=== PATIENT | female | born 1950 | race Caucasian/White ===

== ENCOUNTER → 2016-08-06 | Outpatient (CLI) | payer MEDICAID ==
[~2016-08-06] MED LIST: FEMARA PO; GLUCOSAMINE & C1 CA1 PO; LISINOPRIL20 MG PO; MVI; PERCOCET 325 MG1 TA2 PO; PERCOCET 5/321 UDTAB PO; PROLIA60 MG/ML SC; VITAMIN B COMPL1 T16 PO; ZESTRIL40 MG PO; ZOCOR 20MG20 MG PO; ZOCOR5 MG PO
== END ==
LOC: MC.RAD 08-02 10:00
DX: D24.2 Benign neoplasm of left breast (principal); D24.1 Benign neoplasm of right breast; Z85.3 Personal history of malignant neoplasm of breast

== ENCOUNTER 2017-03-21 07:57 | Outpatient (CLI) | payer MEDICARE, MEDICAID ==
[~2017-03-21] VITALS: Ht 172.8 cm; Wt 121.4 kg
[2017-03-21] VITALS (12 sets, daily range): BP systolic 108–134; BP diastolic 46–69; PULSE 72–83; TEMP 98.2–98.5
[2017-03-21 08:36] LABS: HEMATOCRIT 38.7 % (37.0-47.0); HEMOGLOBIN 12.8 g/dl (12.5-16.0); MEAN CELL VOLUME 88 fl (80.0-100.0); MEAN CORPUSCULAR HEMOGLOBIN 29 pg (27.0-31.0); MEAN CORPUSCULAR HGB CONC 33 g/dl (33.0-37.0); MEAN PLATELET VOLUME 10.6 fl (7.4-10.4); PLATELET COUNT 276 K/mm3 (130-400); RED BLOOD COUNT 4.41 M/mm3 (4.10-5.30); WHITE BLOOD COUNT 8.7 K/mm3 (4.8-10.8)
[2017-03-21] MEDS ORDERED: CARTIA XT180 MG PO (08:36)
[2017-03-21] MEDS ORDERED: GLUCOPHAGE500 MG/TAB PO (08:36)
[2017-03-21] MEDS ORDERED: MASON NATURAL2000 IU PO (08:39)
[2017-03-21] MEDS ORDERED: EPA FISH OIL1 SGL PO (08:39)
[2017-03-21] MEDS ORDERED: ADVIL200 MG PO (08:40)
[2017-03-21 08:51] LABS: INR 1.1 (0.8-3.0); PROTHROMBIN TIME 13.1 SECONDS (9.7-12.8)
[2017-03-21 09:05] LABS: CALCIUM 9.6 mg/dL (8.4-10.2); CREATININE, serum 0.8 mg/dL (0.52-1.25); POTASSIUM 4.5 mmol/L (3.4-5.0)
== END 2017-03-21 12:05 | disposition home or self-care (01) ==
LOC: COL.RAD 07:57
PROVIDERS: Internal Medicine Cardiovascular Disease
DX: I08.1 Rheumatic disorders of both mitral and tricuspid valves (principal); I77.810 Thoracic aortic ectasia; I10 Essential (primary) hypertension; Z85.3 Personal history of malignant neoplasm of breast; Z90.710 Acquired absence of both cervix and uterus; Z90.10 Acquired absence of unspecified breast and nipple
CPT/HCPCS: J2250; J2370; J2704; J3010; J7120

== ENCOUNTER → 2017-09-12 | Outpatient (CLI) | payer MEDICARE, MEDICAID ==
[~2017-09-12] MED LIST changes: +ADVIL200 MG PO; +CARTIA XT180 MG PO; +EPA FISH OIL1 SGL PO; +GLUCOPHAGE500 MG/TAB PO; +MASON NATURAL2000 IU PO
== END ==
LOC: MC.RAD 08-09 11:00
DX: Z12.31 Encounter for screening mammogram for malignant neoplasm of breast (principal); Z85.3 Personal history of malignant neoplasm of breast; Z92.3 Personal history of irradiation; Z90.11 Acquired absence of right breast and nipple

== ENCOUNTER → 2018-09-16 | Outpatient (CLI) | payer MEDICARE, MEDICAID | LOC: MC.RAD 13:00 | DX: Z12.31 Encounter for screening mammogram for malignant neoplasm of breast (principal); C50.411 Malignant neoplasm of upper-outer quadrant of right female breast; Z98.890 Other specified postprocedural states; Z92.3 Personal history of irradiation ==

== ENCOUNTER → 2019-10-19 | Outpatient (CLI) | payer MEDICARE | LOC: MC.RAD 14:28 | DX: Z12.31 Encounter for screening mammogram for malignant neoplasm of breast (principal); C50.411 Malignant neoplasm of upper-outer quadrant of right female breast; Z92.3 Personal history of irradiation; Z98.890 Other specified postprocedural states ==

== ENCOUNTER → 2020-10-20 | Outpatient (CLI) | payer MEDICARE, MEDICAID | LOC: MC.RAD 08:56 | DX: Z12.31 Encounter for screening mammogram for malignant neoplasm of breast (principal); Z98.890 Other specified postprocedural states; Z92.3 Personal history of irradiation; Z85.3 Personal history of malignant neoplasm of breast ==

== ENCOUNTER 2021-07-26 07:27 | Outpatient (CLI) | payer MEDICARE, MEDICAID ==
[~2021-07-26] VITALS: Ht 172.9 cm; Wt 123.3 kg
[2021-07-26 08:12] LABS: HEMOGLOBIN 11.6 g/dl (12.5-16.0); MEAN CELL VOLUME 83 fl (80.0-100.0); MEAN CORPUSCULAR HEMOGLOBIN 28 pg (27-31); MEAN CORPUSCULAR HGB CONC 33 g/dl (33.0-37.0); MEAN PLATELET VOLUME 10.2 fl (7.4-10.4); PLATELET COUNT 278 K/mm3 (130-400); RED BLOOD COUNT 4.22 M/mm3 (4.10-5.30); REDCELL DISTRIBUTION WIDTH-CV 14.6 % (11.5-14.5)
[2021-07-26 08:15] VITALS: BP 146/78; PULSE 73; TEMP 98.1
[2021-07-26 08:16] LABS: HEMATOCRIT 34.9 % (37.0-47.0)
[2021-07-26 08:22] LABS: INR 1.2 (0.8-3.0)
[2021-07-26 08:29] LABS: CALCIUM 8.6 mg/dL (8.4-10.2); CREATININE, serum 0.81 mg/dL (0.57-1.11); POTASSIUM 4.4 mmol/L (3.5-4.5)
[2021-07-26 09:35] VITALS: BP 132/70; PULSE 72
--- NOTE | 2021-07-26 09:35 | NUR ---
RECEIVED REPORT FORM RAD NURSE, PT IS AWAKE AND ALERT, HAS NO C/O. CALL LIGHT IN REACH AND SIPS ON GRAPE JUICE
[2021-07-26 09:50] VITALS: BP 138/64; PULSE 72
[2021-07-26 10:05] VITALS: BP 146/75; PULSE 70
--- NOTE | 2021-07-26 10:10 | NUR ---
PT UP TO B/R, NATE ABAD, DR WATSON INTO SEE PT. REVIEWED DISCHARGE INST. WITH PT ON ACTIVITY, NO NEW MEDS ORDERED AND PRECAUTIONS WITH VERBAL UNDERSTANDING. INT D'CD INTACT. PT DISCHARGED VIA W/C TO CAR WITH FRIEND AT 1020
== END 2021-07-26 10:20 | disposition home or self-care (01) ==
LOC: COL.RAD 07:27
PROVIDERS: Internal Medicine Cardiovascular Disease
DX: R94.31 Abnormal electrocardiogram [ECG] [EKG] (principal); I44.0 Atrioventricular block, first degree; I34.0 Nonrheumatic mitral (valve) insufficiency; Z20.822 Contact with and (suspected) exposure to COVID-19
CPT/HCPCS: J2704; J7120

== ENCOUNTER → 2021-10-24 | Outpatient (CLI) | payer MEDICARE, MEDICAID | LOC: MC.RAD 10:05 | DX: Z12.31 Encounter for screening mammogram for malignant neoplasm of breast (principal); Z85.3 Personal history of malignant neoplasm of breast; Z92.3 Personal history of irradiation; Z98.890 Other specified postprocedural states ==

== ENCOUNTER → 2023-11-04 | Outpatient (CLI) | payer MEDICARE | LOC: MC.RAD 09:36 | DX: Z12.31 Encounter for screening mammogram for malignant neoplasm of breast (principal); C50.411 Malignant neoplasm of upper-outer quadrant of right female breast ==